=== PATIENT | male | born 1975 | race Caucasian/White ===

== ENCOUNTER 2018-06-26 11:43 | Emergency (ER) | payer BC ==
[2018-06-26 11:59] VITALS: BP 165/104
--- NOTE | 2018-06-26 12:08 | EDM.PDOC ---
ED HPI GENERAL MEDICAL PROBLEM - General Chief Complaint: Lower Extremity Injury/Pain Stated Complaint: LEFT ANKLE PAIN Time Seen by Provider: 06/26/18 11:50 Source of Information: Reports: Patient, Family History Limitations: Reports: No Limitations - History of Present Illness INITIAL COMMENTS - FREE TEXT/NARRATIVE: 42-year-old male with a left lower leg injury. Just within the last few hours he accidentally pinched his left lower leg between a wall and are moving golf cart. He is able to barely bear weight but it is very painful, he has abrasions above the ankle with swelling. Onset: Sudden Duration: Hour(s): (Within the last 2 hours) Location: Reports: Lower Extremity, Left Quality: Reports: Sharp, Stabbing Worsens with: Reports: Other (Weightbearing and movement is painful) ankle Pain Score (Numeric/FACES): 5 - Related Data Allergies Allergy/AdvReac Type Severity Reaction Status Date / Time No Known Allergies Allergy Verified 06/26/18 11:54 Home Meds: Home Meds NK [No Known Home Meds] 12/08/14 [History] Past Medical History - Past Health History Medical/Surgical History: Denies Medical/Surgical History Musculoskeletal History: Reports: Back Pain, Chronic, Fracture - Infectious Disease History Infectious Disease History: Reports: Chicken Pox - Past Surgical History Musculoskeletal Surgical History: Reports: Other (See Below) Other Musculoskeletal Surgeries/Procedures:: back surgery Social & Family History - Tobacco Use Smoking Status *Q: Never Smoker - Caffeine Use Caffeine Use: Reports: Coffee - Recreational Drug Use Recreational Drug Use: No - Living Situation & Occupation Living situation: Reports: , with Spouse Occupation: Employed Review of Systems - Review of Systems Review Of Systems: See Below Constitutional: Denies: Fever Respiratory: Reports: No Symptoms Musculoskeletal: Reports: Leg Pain Skin: Reports: Bruising, Other (Superficial abrasions around the injury and left anterior knee) Neurological: Denies: Paresthesia ED EXAM, GENERAL - Physical Exam Exam: See Below Exam Limited By: No Limitations General Appearance: Alert, No Apparent Distress (Looks uncomfortable but not distressed) Respiratory/Chest: No Respiratory Distress Extremities: Other (Exam is otherwise limited the lower extremities. The left knee has a superficial abrasion anteriorly but no effusion or significant pain with range of motion. There is swelling and erythema underlying an abrasion on the lateral aspect of the left lower leg above the lateral malleolus, and a superficial abrasion of the posterior heel) Course - Vital Signs Last Recorded V/S: Last Vital Signs Temp 97.8 F 06/26/18 11:54 Pulse 75 06/26/18 11:54 Resp 16 06/26/18 11:54 BP 165/104 H 06/26/18 11:54 Pulse Ox 98 06/26/18 11:54 - Orders/Labs/Meds Orders: Active Orders 24 hr Category Date Time Status DME for Discharge [COMM] Stat Oth 06/26/18 12:42 Ordered Meds: Medications Discontinued Medications Generic Name Dose Route Start Last Admin Trade Name Freq PRN Reason Stop Dose Admin Bacitracin 1 dose 06/26/18 12:26 06/26/18 12:37 Bacitracin Oint 1 Gm TOP 06/26/18 12:27 1 dose ONETIME ONE Administration - Re-Assessments/Exams Free Text/Narrative Re-Assessment/Exam: 06/26/18 12:08 A left ankle x-ray was obtained. 06/26/18 12:42 X-rays negative for fracture, abrasions were dressed with bacitracin and Band- Aids and then preston wraps were applied to the foot and ankle. He was fitted for crutches and will increase ambulation as tolerated and recheck next week if not improving satisfactorily. Departure - Departure Time of Disposition: 12:47 Disposition: Home, Self-Care 01 Condition: Good Clinical Impression: Contusion of leg, left, multiple sites Qualifiers: Encounter type: initial encounter Qualified Code(s): S80.12XA - Contusion of left lower leg, initial encounter Abrasion of foot Qualifiers: Encounter type: initial encounter Laterality: left Qualified Code(s): S90.812A - Abrasion, left foot, initial encounter - Discharge Information Instructions: Contusion, [id number] Referrals: PCP,None [Primary Care Provider] - Forms: ED Department Discharge Care Plan Goals: Preston wrap for support, keep wounds clean while healing and elevate and ice when able. Use crutches initially but increase activity as tolerated and recheck in 5 -7 days if not improving satisfactorily. Ibuprofen or naproxen should help. - My Orders Last 24 Hours: My Active Orders 06/26/18 12:42 DME for Discharge [COMM] Stat - Assessment/Plan Last 24 Hours: My Active Orders 06/26/18 12:42 DME for Discharge [COMM] Stat
[2018-06-26] MEDS ORDERED: Bacitracin Oint 1 GM U/D Packet TOP ONE (12:26)
--- NOTE | 2018-06-26 12:39 | CRLCR ---
INDICATION: injury, crushed into wall TECHNIQUE: Left ankle 3 views. COMPARISON: None. FINDINGS: Bones: Alignment is normal. No fractures or bone lesions. Joint spaces: Unremarkable. Soft tissues: Unremarkable. IMPRESSION: Unremarkable left ankle. Dictated by: Fuad Alicia MD @ 06/26/2018 12:39:17 (Electronically Signed)
== END 2018-06-26 12:47 | disposition home or self-care (01) ==
LOC: JP.ED 11:43
DX: S80.12XA Contusion of left lower leg, initial encounter (principal); S90.812A Abrasion, left foot, initial encounter; S80.212A Abrasion, left knee, initial encounter; W23.1XXA Caught, crushed, jammed, or pinched between stationary objects, initial encounter
CPT/HCPCS: 73610-LT; 99283-25

== ENCOUNTER 2023-06-10 18:32 | Emergency (ER) | payer BC ==
[2023-06-10] MEDS ORDERED: Naloxone 0.4 MG/ML SDV IVPUSH PRN (18:44)
[2023-06-10 18:47] VITALS: BP 148/103; PULSE 83
[2023-06-10] MEDS: HYDROmorphone 1 MG/ML Syringe IVPUSH ONE (18:48)
[2023-06-10] MEDS: Ketorolac 30 MG/ML SDV IVPUSH ONE (21:21)
== END 2023-06-10 21:35 | disposition home health service (06) ==
LOC: JP.ED 18:32
DX: S43.102A Unspecified dislocation of left acromioclavicular joint, initial encounter (principal); Z86.19 Personal history of other infectious and parasitic diseases; V86.55XA Driver of 3- or 4- wheeled all-terrain vehicle (ATV) injured in nontraffic accident, initial encounter
CPT/HCPCS: 73030; 96374; 96375; 99283; J1170; J1885

== ENCOUNTER 2024-01-16 06:16 | Day surgery (SDC) | payer BC ==
[2024-01-16] MEDS ORDERED: Midazolam 1 MG/ML 2 ML SDV ONE (06:48)
[2024-01-16] MEDS ORDERED: fentaNYL 50 MCG/ML SDV ONE (06:48)
[2024-01-16] MEDS ORDERED: Propofol 200 MG/20 ML SDV ONE (06:48)
[2024-01-16] MEDS: Lactated Ringers 1,000 ML IV SCH (06:59)
[2024-01-16 08:46] VITALS: BP 105/75; PULSE 55
== END 2024-01-16 08:45 | disposition home or self-care (01) ==
LOC: JP.SDS 06:16
PROVIDERS: ATTEND Family Medicine
DX: Z12.11 Encounter for screening for malignant neoplasm of colon (principal); D12.3 Benign neoplasm of transverse colon; K63.5 Polyp of colon; K62.1 Rectal polyp; E78.5 Hyperlipidemia, unspecified
CPT/HCPCS: 00811; 45380; 45385; J2250; J2704; J3010; J7120; 88305